=== PATIENT | female | born 1940 | race Caucasian/White ===

== ENCOUNTER 2018-03-11 10:23 | Outpatient (CLI) | payer MEDICARE, OTHER | END 2018-03-11 10:24 | disposition home or self-care (01) | LOC: BICMAMMO 10:23 | PROVIDERS: ATTEND Internal Medicine | DX: Z13.820 Encounter for screening for osteoporosis (principal); M85.88 Other specified disorders of bone density and structure, other site | CPT/HCPCS: 77080 ==

== ENCOUNTER 2018-06-23 09:43 | Observation (INO) | payer MEDICARE, OTHER ==
[2018-06-23] MEDS ORDERED: Nitroglycerin 0.4 MG TAB (25 Tab Bottle) ONE (10:25)
[2018-06-23 10:28] LABS: #Eosinphils 0.3 thou/uL (0.0-0.7); #Lymphocytes 2.1 thou/uL (1.20-3.40); #Monocytes 0.4 thou/uL (0.11-0.59); #Neutrophils 3.9 thou/uL (1.40-6.50); %Basophils 0.7 % (0.0-1.0); %Eosinophils 4.5 % (0.0-10.0); %Lymphocytes 30.9 % (21.0-51.0); %Neutrophils 57.8 % (42.0-75.0); Hemoglobin 12.3 g/dL (12.0-16.0); Mean Corpuscular HGB CONC 33.4 g/dL (32.0-36.0); Mean Corpuscular Hemoglobin 30.4 pg (27.0-31.0); Mean Corpuscular Volume 90.9 fL (78.0-98.0); Mean Platelet Volume 8.4 fL (7.4-10.4); Platelet Count 234 thou/uL (130-400); RBC Distribution Width 11.6 % (11.5-14.5); Red Blood Cell (RBC) Count 4.06 mill/uL (4.20-5.40); White Blood Cell (WBC) Count 6.8 thou/uL (4.8-10.8)
[2018-06-23 10:50] LABS: ALT (SGPT) 27 U/L (8-55); AST (SGOT) 30 U/L (5-34); Albumin 3.9 g/dL (3.4-4.8); Alkaline Phosphatase 99 U/L (40-150); Anion Gap 12 mmol/L (10-20); BUN (Urea Nitrogen) 19 mg/dL (9.8-20.1); Bilirubin, Total 0.5 mg/dL (0.2-1.2); Calc. Creatinine Clearance 0 mL/min (70-130); Calcium 9.4 mg/dL (7.8-10.44); Carbon Dioxide 25 mmol/L (23-31); Chloride 107 mmol/L (98-107); Estimated GFR-MDRD 64; Globulin 2.4 g/dL (2.4-3.5); Glucose 103 mg/dL (83-110); Potassium 3.8 mmol/L (3.5-5.1); Protein, Total 6.3 g/dL (6.0-8.3); Sodium 140 mmol/L (136-145)
[2018-06-23 10:54] LABS: Troponin I 0.038 ng/mL (< 0.028)
--- NOTE | 2018-06-23 11:05 | RAD ---
CHEST 2 VIEWS: HISTORY: Chest pain. COMPARISON: Chest radiograph 2017. FINDINGS: Heart size is mildly enlarged. No pneumothorax or effusion. No focal confluent airspace consolidati on. Multiple midline sternotomy wires. IMPRESSION: No acute intrathoracic abnormality. POS: ANTONIO
[2018-06-23] MEDS ORDERED: Acetaminophen 325 MG TAB PO PRN (13:32)
[2018-06-23] MEDS ORDERED: Diabetic Tussin 200 MG/10 ML UDCUP PO PRN (13:32)
[2018-06-23] MEDS ORDERED: Bisacodyl 5 MG TAB PO PRN (13:32)
[2018-06-23] MEDS ORDERED: cloNIDine 0.1 MG TAB PO PRN (13:32)
[2018-06-23] MEDS ORDERED: Ondansetron PF 4 MG/2 ML Vial IVP PRN ×2 (13:32)
[2018-06-23] MEDS ORDERED: hydrALAZINE 20 MG/ML VIAL SLOW IVP PRN (13:32)
[2018-06-23] MEDS ORDERED: Senokot S 8.6-50 MG TAB PO PRN (13:32)
[2018-06-23] MEDS ORDERED: Nitroglycerin 0.4 MG TAB (25 Tab Bottle) SL PRN (13:32)
[2018-06-23] MEDS ORDERED: Benzonatate 100 MG CAP PO PRN (13:32)
[2018-06-23 14:19] LABS: Troponin I 0.033 ng/mL (< 0.028)
[2018-06-23 14:58] LABS: Cardiac Risk 3.2 (Less than 4.5)
--- NOTE | 2018-06-23 15:23 | HP ---
DATE OF ADMISSION: 06/23/2018 CHIEF COMPLAINT: Chest pain and cough. HISTORY OF PRESENT ILLNESS: Ms. Smith is a 77-year-old female with past medical history of hypertensi on and history of aortic valve replacement about 1 year ago in [place], who presented to the emergency room with the above-mentioned complaint. History is mainly obtained by the patient herself and [facility] medical records have been reviewed. Ms. Smith reports that she had an aortic valve replacement done for what sounds like aortic regurgitat ion one year ago. She used to see Dr. Zheng, but for some reason, she decided to change her cardi ologist and went to Dr. Granger in [facility]. She states that she was seen earlier this year and was told to come back in 1 year. She is otherwise healthy and asymptomatic. She checked her blood pressure this morning and found out it was very high with systolic in the 180s and diastolic around 110. She has also noticed that blood pressure was high yesterday as well. Today, the patient was working in the yard and feeding her pets when she noticed that she has been sierra ving some chest discomfort in the left side going up her shoulder and down her arm. She was also fee ling weak and tired for the last day or so. She also has some chronic cough for about a year and has noticed that it has worsened over the last few days. She denies any shortness of breath but gets ea sily winded. She denies any fever or chills or excessive swelling. She does report that her diet sierra s been changed recently because of the hols and she does not really watch what she e ats. Upon presentation to the emergency room, she was hemodynamically stable with blood pressure of 153/83 , saturating 97% on room air. Her EKG had some T-wave inversions in leads V4 and V5 and cardiac enzy mes showed troponin borderline at 0.038. Her BNP was also elevated to 605, but chest x-ray was unrem arkable. She is now being admitted for further evaluation and cardiac workup for chest pain. PAST MEDICAL HISTORY: 1. Hypertension. 2. Aortic valve replacement, history of mitral valve insufficiency. 3. History of diastolic cardiac dysfunction, though the patient denies any knowledge of the same. 4. Arthritis. 5. Osteoporosis. 6. Fibromyalgia. PAST SURGICAL HISTORY: 1. Cataract surgery. 2. Lumpectomy. 3. Hysterectomy. 4. Aortic valve replacement. I am not sure what kind of surgery this was, but it seems like it was for aortic insufficiency, not aortic stenosis. PSYCHIATRIC HISTORY: No Anxiety, depression. SOCIAL HISTORY: No history of drug, tobacco or alcohol abuse. She lives at home with family. FAMILY HISTORY: No family history of premature coronary artery disease or stroke. HOME MEDICATIONS: 1. Metoprolol. 2. Amlodipine. 3. Lasix 20 mg daily. 4. Baby aspirin daily. These further need to be reconciled. ALLERGIES: Include NAPROXEN. REVIEW OF SYSTEMS: A twelve-point review of systems was done and is negative except for those mentio edgard in the history and physical. LABORATORY DATA: CBC is unremarkable. Serum chemistries unremarkable. Repeat troponin 0.033, BNP 6 05. IMAGING: Chest x-ray by my review has no evidence to suggest pleural effusion, but this is a one vie w, mild cardiomegaly noticed. A 12-lead EKG by my review shows normal sinus rhythm with some T-wave inversion in leads V4 and V5. PHYSICAL EXAMINATION: VITAL SIGNS: Upon presentation, blood pressure 153/83, pulse of 57, respirations 20, saturating 97% on room air, temperature 98. GENERAL: No acute distress, awake, alert, oriented x3. She is eating crackers and is awake, alert, and is in no apparent distress. The patient has makeup on. HEENT: Mucous membrane is moist and pink. No oropharyngeal exudate or erythema. Head is normocepha lic, atraumatic. Pupils are equal, reactive to light and accommodation. Extraocular movements are i ntact. NECK: Supple without any lymphadenopathy, JVD or bruit. CHEST: Clear to auscultation without any wheezing, rales or rhonchi. CARDIOVASCULAR: Rate and rhythm is regular. Soft systolic murmur is heard at the second intercostal space. ABDOMEN: Soft, nontender, nondistended with positive bowel sounds. EXTREMITIES: Free of any cyanosis, clubbing, or edema. NEUROLOGIC: Nonfocal. PSYCHIATRIC: Normal affect. IMPRESSION AND PLAN: 1. Chest pain. Ms. Smith seems to have some fluid overload given her uncontrolled hypertension which is most likely secondary to indulgence and food over the break and the patient agrees t o that. I will give her an extra dose of Lasix by IV for fluid overload. She is also having symptom s of some shortness of breath and cough related to her fluid overload. I doubt that she is having an ACS and borderline elevation in troponin is secondary to fluid overload. However, we will obtain a nuclear medicine stress test to rule out ACS for sure given some T-wave inversions in the EKG and con tinue to trend serial cardiac enzymes and give her full dose aspirin and sublingual p.r.n. nitroglyce rin. We will check a lipid panel as the patient does not seem to be any on cholesterol lowering agen t and she is a high risk for hypercholesterolemia given her poor diet. Dietary and salt restriction emphasized to the patient and her daughter at bedside who actually have some difficult time understan ding the recommendations. 2. Hypertension. Restart home medications once confirmed. 3. Dyslipidemia. Check lipid panel. 4. History of aortic valve surgery, I am not sure if this was a replacement or a ring annuloplasty. She will continue to follow with Dr. Granger. Outpatient echocardiogram is recommended. 5. Code status: FULL CODE. Discussed with the patient. DISPOSITION: Ms. Smith is being admitted to the hospital under observation status to rule out acute c oronary syndrome and treatment of the fluid overload as stated above. Further management will depend upon her clinical course.
[2018-06-23 15:48] VITALS: BMI 24.1
[2018-06-23] MEDS ORDERED: Furosemide 40 MG/4 ML VIAL SLOW IVP SCH (16:00)
[2018-06-23 17:49] LABS: Troponin I 0.029 ng/mL (< 0.028)
[2018-06-23] MEDS: Famotidine 20 MG TAB PO SCH (22:11)
[2018-06-23] MEDS: ALPRAZolam 0.25 MG TAB PO PRN (22:14)
[2018-06-24 05:09] LABS: Anion Gap 12 mmol/L (10-20); BUN (Urea Nitrogen) 25 mg/dL (9.8-20.1); Calc. Creatinine Clearance 51 mL/min (70-130); Calcium 8.8 mg/dL (7.8-10.44); Carbon Dioxide 25 mmol/L (23-31); Chloride 106 mmol/L (98-107); Estimated GFR-MDRD 55; Glucose 102 mg/dL (83-110); Potassium 3.5 mmol/L (3.5-5.1); Sodium 139 mmol/L (136-145)
[2018-06-24] MEDS: ALPRAZolam 0.25 MG TAB PO PRN (08:12)
[2018-06-24] MEDS ORDERED: ALPRAZolam 0.25 MG TAB PO PRN (08:38)
[2018-06-24] MEDS ORDERED: Furosemide 20 MG TAB PO SCH ×2 (09:00)
[2018-06-24] MEDS ORDERED: Enoxaparin Sodium 40 MG/0.4 ML SYRINGE SC SCH (09:00)
[2018-06-24] MEDS ORDERED: Aspirin 81 mg Enteric Coated Tablet PO SCH (09:00)
[2018-06-24] MEDS ORDERED: Amlodipine 5 MG TAB PO SCH (09:00)
[2018-06-24] MEDS: Famotidine 20 MG TAB PO SCH (11:28)
[2018-06-24 12:19] VITALS: BP 132/76; TEMP 97.4
--- NOTE | 2018-06-24 13:43 | NM ---
MYOCARDIAL PERFUSION SCAN WITH SPECT IMAGIN06/24/18 HISTORY: Left sided chest pain onset this morning. The examination is performed using 32 millicuries of 99m Technetium Sestamibi on stress and 11 on the resting images. There is a normal distribution of the radiopharmaceutical. There is no signs of ischemia or scar. Wall motion: There is symmetric contractility to the ventricle. Left ventricular ejection fraction: The calculated left ventricular ejection fraction is 67%. IMPRESSION: Unremarkable myocardial perfusion scan. POS: ANTONIO
[2018-06-24] MEDS ORDERED: ADENOSINE 60 MG/20 ML VIAL ONE (16:44)
--- NOTE | 2018-06-24 22:35 | DIS ---
DATE OF ADMISSION: 06/23/2018 DATE OF DISCHARGE: 06/24/2018 PRIMARY CARE PHYSICIAN: Bibi Thomason M.D. PRIMARY CAN CLOSING MACHINE OPERATOR: Leonel Davis M.D. DISCHARGE DIAGNOSES: 1. Fluid overload because of dietary indiscretion and uncontrolled hypertension. 2. Uncontrolled hypertension. 3. Chest discomfort secondary to #1 and #2. 4. History of hypertension. 5. History of aortic valve surgery for aortic regurgitation in the past. 6. Sinus bradycardia, likely secondary to beta brandon. DISCHARGE MEDICATIONS: Resume following home medications, Lasix 20 mg daily, aspirin 81 mg daily, Xa nax 0.25 mg p.o. daily p.r.n. Please note that the following changes were made, Toprol-XL dose was r educed from 50 mg daily to 25 mg daily and amlodipine dose has been increased from 2.5 mg daily to 5 mg daily. New prescriptions were provided. PROCEDURES DONE IN THE HOSPITAL: Nuclear medicine stress test, which shows EF of 67%, no wall motion abnormality and no evidence of ischemia or scar. CONSULTATIONS: None. HISTORY OF PRESENT ILLNESS: Ms. Smith is a pleasant 77-year-old female with known history of hyperten saad and some sort of aortic valve surgery because of history of aortic valve insufficiency who prese nted to the emergency room with complaints of chest pain and cough. She was found to have of borderl ine elevated troponin and elevated BNP of over 600. Chest x-ray was unremarkable. EKG had some nons pecific T-wave inversions. She was otherwise hemodynamically stable. She also gave history of uncon trolled hypertension for the last 2 or 3 days. She did accept that she has been not really watching her diet and had a lot of new foods over the break. She was admitted for further workup and ACS rule out with a presumptive diagnosis of uncontrolled hyp ertension and fluid overload secondary to that. Please see admission history and physical for furthe r detail. HOSPITAL COURSE: The patient's were trended and they trended back towards normal. Discharge troponi n was 0.029 whereas the admission troponin was 0.038. Her lipid panel was checked and was unremarkab le. She underwent a nuclear medicine stress test which was also within normal limits. She had heart rate in the 60s even without the Toprol in the hospital. For this reason, her Toprol dose was reduc ed to 25 from 50 mg daily, and to maintain her blood pressure in the normal range, amlodipine dose wa s increased from 2.5 to 5 mg. At this time, I believe that the patient's symptoms are because of the fluid overload and uncontrolle d hypertension because of dietary indiscretion. Counseling was provided about heart healthy diet. S he verbalized understanding. She was given one dose of IV Lasix in the hospital which helped her sym ptoms greatly. She will resume home dose of 20 mg of Lasix on a daily basis otherwise. She was enco uraged to follow up with her primary care physician as well as her primary interior assemblies installer. She has an upcoming appointment with her primary interior assemblies installer next month. PHYSICAL EXAMINATION: She was seen and examined prior to discharge and physical examination this morn ing. VITAL SIGNS: Temperature 97.4, pulse of 54, respirations 18, saturating 98% on room air, blood press ure 132/76. GENERAL: No acute distress, awake, alert, oriented x3. CHEST: Clear to auscultation bilaterally. HEART: Rate and rhythm is regular. Discharge plan was discussed with the patient in detail and she verbalized understanding.
== END 2018-06-24 13:23 | disposition home or self-care (01) ==
LOC: ERS 09:43 → ERHOLD 12:07 → 2SW 15:15
PROVIDERS: ADMIT Internal Medicine; ATTEND Internal Medicine
DX: I10 Essential (primary) hypertension (principal); E87.79 Other fluid overload; R07.89 Other chest pain; M19.90 Unspecified osteoarthritis, unspecified site; M81.0 Age-related osteoporosis without current pathological fracture; M79.7 Fibromyalgia; Z79.82 Long term (current) use of aspirin; Z79.899 Other long term (current) drug therapy; Z88.6 Allergy status to analgesic agent; Z95.2 Presence of prosthetic heart valve
CPT/HCPCS: 71046; 78452; 80048; 80053; 80061; 83880; 84484 ×2; 85025; 93005; 93017; 96372; 96374; 99285; A9500; G0378 ×2; 36415; J0153; J1650; J1940

== ENCOUNTER 2021-08-01 13:06 | Outpatient (CLI) | payer MEDICARE | END 2021-08-01 13:07 | disposition home or self-care (01) | LOC: BICMAMMO 13:06 | PROVIDERS: ATTEND Family Medicine | DX: Z12.31 Encounter for screening mammogram for malignant neoplasm of breast (principal); Z80.3 Family history of malignant neoplasm of breast | CPT/HCPCS: 77063; 77067 ==

== ENCOUNTER 2022-09-13 09:23 | Outpatient (CLI) | payer MEDICARE | END 2022-09-13 09:24 | disposition home or self-care (01) | LOC: BICMAMMO 09:23 | PROVIDERS: ATTEND Family Medicine | DX: Z12.31 Encounter for screening mammogram for malignant neoplasm of breast (principal); Z80.3 Family history of malignant neoplasm of breast | CPT/HCPCS: 77063; 77067 ==

== ENCOUNTER 2023-09-18 12:58 | Outpatient (CLI) | payer MEDICARE | END 2023-09-18 12:59 | disposition home or self-care (01) | LOC: BICMAMMO 12:58 | PROVIDERS: ATTEND Family Medicine | DX: Z12.31 Encounter for screening mammogram for malignant neoplasm of breast (principal); Z80.3 Family history of malignant neoplasm of breast | CPT/HCPCS: 77063; 77067 ==

== ENCOUNTER 2024-10-02 10:52 | Outpatient (CLI) | payer MEDICARE, OTHER | END 2024-10-02 10:53 | disposition home or self-care (01) | LOC: BICMAMMO 10:52 | PROVIDERS: ATTEND Family Medicine | DX: Z12.31 Encounter for screening mammogram for malignant neoplasm of breast (principal); Z80.3 Family history of malignant neoplasm of breast | CPT/HCPCS: 77063; 77067 ==